=== PATIENT | female | born 1980 | race Caucasian/White ===

== ENCOUNTER 2018-06-25 02:28 | Inpatient (IN) | payer OTHER ==
[2018-06-25] MEDS ORDERED: MISOPROSTOL 200 MCG TAB PR ×2 (03:00→12:30)
[2018-06-25] MEDS ORDERED: OXYTOCIN 30 UNITS/LR 500 ML IV ×3 (03:00→12:30)
[2018-06-25] MEDS ORDERED: BUTORPHANOL 2 MG INJ IV (03:00)
[2018-06-25] MEDS ORDERED: MINERAL OIL LIGHT 10 ML VIAL TOP (03:00)
[2018-06-25] MEDS ORDERED: METHYLERGONOVINE 0.2 MG INJ IM ×2 (03:00→12:30)
[2018-06-25] MEDS ORDERED: LIDOCAINE 1% (MPF) 30 ML INJ INJ (03:00)
[2018-06-25] MEDS ORDERED: CARBOPROST 250 MCG INJ IM ×2 (03:00→12:30)
[2018-06-25] MEDS ORDERED: IBUPROFEN 600 MG TAB PO (03:00)
[2018-06-25] MEDS: LACTATED RINGER'S 1,000 ML IV ×2 (03:18→05:02)
[2018-06-25 03:26] LABS: ADD MAN DIFF? NO
[2018-06-25] MEDS: AMPICILLIN 2 GM/NS (PMX) 100 ML IV (03:29)
[2018-06-25 03:30] LABS: BASOPHILS % 0.5 % (0.0-2.0); EOSINOPHILS % 0.6 % (0.0-7.0); HEMATOCRIT 34.3 % (37.0-47.0); HEMOGLOBIN 11.7 g/dl (12.0-16.0); LYMPHOCYTES # 1.8 10^3/ul (0.8-2.9); LYMPHOCYTES % 27.5 % (15.0-51.0); MEAN CORPUSCULAR HEMOGLOBIN 30.8 pg (29.0-33.0); MEAN CORPUSCULAR HGB CONC 34.1 g/dl (32.0-37.0); MEAN CORPUSCULAR VOLUME 90.3 fl (82.0-101.0); MEAN PLATELET VOLUME 9.4 fl (7.4-10.4); MONOCYTE # 0.6 10^3/ul (0.3-0.9); MONOCYTES % 8.6 % (0.0-11.0); NEUTROPHIL # 4.2 10^3/ul (1.6-7.5); NEUTROPHILS % 62.6 % (39.0-77.0); PLATELET COUNT 301 10^3/UL (140-415); RED CELL DISTRIBUTION WIDTH 12.2 % (11.5-14.5)
[2018-06-25 03:30] LABS: WHITE BLOOD COUNT 6.6 10^3/ul (4.8-10.8)
[2018-06-25 04:04] LABS: INR 0.94; PROTIME 12.7 Sec (11.9-14.9)
[2018-06-25 04:05] LABS: PARTIAL THROMBOPLASTIN TIME 25.6 Sec (23.0-35.0)
[2018-06-25 04:32] LABS: HEPATITIS B SURFACE ANTIGEN NEGATIVE (NEGATIVE)
[2018-06-25] MEDS ORDERED: FENTAnyl 2MCG/ML-ROPIV 0.2% 100 ML (04:57)
[2018-06-25] MEDS ORDERED: DIPHENHYDRAMINE 50 MG INJ IV (05:00)
[2018-06-25] MEDS ORDERED: NALBUPHINE HCL (10 MG/1 ML) INJ IV (05:00)
[2018-06-25] MEDS ORDERED: NALOXONE (0.4 MG/ML) INJ IV (05:00)
[2018-06-25] MEDS: FENTAnyl 2MCG/ML-ROPIV 0.2% 100 ML BAG EPI (05:02)
[2018-06-25] MEDS: AMPICILLIN 1 GM/NS (PMX) 50 ML IV (06:55)
[2018-06-25] MEDS: OXYTOCIN 30 UNITS/LR 500 ML IV ×2 (09:59→10:29)
[2018-06-25] MEDS ORDERED: KETOROLAC 30 MG INJ IV (10:02)
[2018-06-25] MEDS ORDERED: DIBUCAINE 1% 30 GM OINT TOP (12:30)
[2018-06-25] MEDS ORDERED: BENZOCAINE 20% 56 ML SPRAY TOP (12:30)
[2018-06-25] MEDS ORDERED: ZOLPIDEM 5 MG TAB PO (12:30)
[2018-06-25] MEDS ORDERED: LANOLIN HPA 1 PKT TOP (12:30)
[2018-06-25] MEDS ORDERED: WITCH HAZEL/GLYCERIN PAD PR (12:30)
[2018-06-25] MEDS ORDERED: HYDROCODONE/APAP (5/325) TAB PO ×2 (12:30)
[2018-06-25] MEDS: IBUPROFEN 600 MG TAB PO ×3 (12:55→23:49)
[2018-06-25] MEDS: CEPHALEXIN 500 MG CAP PO ×3 (12:55→23:48)
[2018-06-25] MEDS: LACTATED RINGER'S 1,000 ML IV* ×2 (14:42→20:14)
[2018-06-25 15:10] LABS: RAPID PLASMA REAGIN NONREACTIVE (NR)
[2018-06-25] MEDS: MAGNESIUM HYDROXIDE 30ML CUP PO (21:20)
[2018-06-25] MEDS: SENNA/DOCUSATE NA (8.6MG/50MG) TAB PO (21:20)
[2018-06-26] MEDS: LACTATED RINGER'S 1,000 ML IV* ×3 (04:14→20:14)
[2018-06-26] MEDS: CEPHALEXIN 500 MG CAP PO ×3 (05:56→17:34)
[2018-06-26] MEDS: IBUPROFEN 600 MG TAB PO ×3 (05:56→17:35)
[2018-06-26 06:44] LABS: ADD MAN DIFF? NO
[2018-06-26 06:50] LABS: BASOPHILS % 0.3 % (0.0-2.0); EOSINOPHILS # 0.1 10^3/ul (0.0-0.5); HEMATOCRIT 29.3 % (37.0-47.0); HEMOGLOBIN 9.9 g/dl (12.0-16.0); LYMPHOCYTES # 1.8 10^3/ul (0.8-2.9); LYMPHOCYTES % 27.1 % (15.0-51.0); MEAN CORPUSCULAR HEMOGLOBIN 30.9 pg (29.0-33.0); MEAN CORPUSCULAR HGB CONC 33.8 g/dl (32.0-37.0); MEAN CORPUSCULAR VOLUME 91.6 fl (82.0-101.0); MEAN PLATELET VOLUME 9.5 fl (7.4-10.4); MONOCYTE # 0.6 10^3/ul (0.3-0.9); MONOCYTES % 8.3 % (0.0-11.0); NEUTROPHIL # 4.2 10^3/ul (1.6-7.5); PLATELET COUNT 240 10^3/UL (140-415); RED CELL DISTRIBUTION WIDTH 12.3 % (11.5-14.5)
[2018-06-26 06:50] LABS: WHITE BLOOD COUNT 6.7 10^3/ul (4.8-10.8)
[2018-06-26] MEDS: MAGNESIUM HYDROXIDE 30ML CUP PO ×2 (09:00→20:37)
[2018-06-26] MEDS: SENNA/DOCUSATE NA (8.6MG/50MG) TAB PO ×2 (09:00→20:37)
[2018-06-26] MEDS: ACETAMINOPHEN 325 MG TAB PO (19:34)
[2018-06-27] MEDS: CEPHALEXIN 500 MG CAP PO ×3 (00:44→12:01)
[2018-06-27] MEDS: IBUPROFEN 600 MG TAB PO ×3 (00:44→12:01)
[2018-06-27] MEDS: ACETAMINOPHEN 325 MG TAB PO ×2 (00:44→09:17)
[2018-06-27] MEDS: LACTATED RINGER'S 1,000 ML IV* (04:14)
[2018-06-27] MEDS: MEASLES,MUMPS,RUBELLA VACCINE INJ SC* (09:00)
[2018-06-27] MEDS: SENNA/DOCUSATE NA (8.6MG/50MG) TAB PO (09:00)
[2018-06-27] MEDS: DIPHTH/TET/ACEL PERTUSS (ADULT) 0.5 ML VIAL IM* (09:00)
[2018-06-27] MEDS: MAGNESIUM HYDROXIDE 30ML CUP PO (09:00)
[2018-06-27] MEDS: VARICELLA VACCINE LIVE/PF 1,350 UNIT/0.5 ML ML SC* (09:00)
== END 2018-06-27 15:43 | disposition home or self-care (01) | DRG 807 ==
LOC: OBT 02:28 → L-D 02:30 → OBT 02:39 → L-D 02:39 → PP1 12:11
PROVIDERS: Obstetrics & Gynecology
PROC: 10E0XZZ Delivery of Products of Conception, External Approach (ICD-10-PCS; principal; 2018-06-25)
DX: O69.81X0 Labor and delivery complicated by cord around neck, without compression, not applicable or unspecified (principal); Z37.0 Single live birth; O77.0 Labor and delivery complicated by meconium in amniotic fluid; O99.824 Streptococcus B carrier state complicating childbirth; Z3A.39 39 weeks gestation of pregnancy
CPT/HCPCS: 62319; 85025; 85610; 85730; 86592; 86850; 86900; 86901; 87340; 99464